=== PATIENT | female | born 1995 | race Caucasian/White ===

== ENCOUNTER 2016-12-10 09:57 | Outpatient (CLI) | payer OTHER | END 2016-12-10 11:15 | disposition home or self-care (01) | DX: O26.893 Other specified pregnancy related conditions, third trimester (principal); R51 Headache; Z3A.34 34 weeks gestation of pregnancy ==

== ENCOUNTER 2016-12-10 11:28 | Emergency (ER) | payer OTHER | END 2016-12-10 13:06 | disposition home or self-care (01) | DX: O99.513 Diseases of the respiratory system complicating pregnancy, third trimester (principal); O98.513 Other viral diseases complicating pregnancy, third trimester; J06.9 Acute upper respiratory infection, unspecified; B97.89 Other viral agents as the cause of diseases classified elsewhere; O99.333 Smoking (tobacco) complicating pregnancy, third trimester; Z3A.34 34 weeks gestation of pregnancy ==

== ENCOUNTER 2016-12-21 23:30 | Outpatient (CLI) | payer OTHER | END 2016-12-22 01:25 | disposition home or self-care (01) | DX: O47.1 False labor at or after 37 completed weeks of gestation (principal); Z3A.36 36 weeks gestation of pregnancy ==

== ENCOUNTER 2016-12-26 16:47 | Outpatient (CLI) | payer OTHER | END 2016-12-26 17:55 | disposition home or self-care (01) | DX: O47.1 False labor at or after 37 completed weeks of gestation (principal); Z3A.37 37 weeks gestation of pregnancy ==

== ENCOUNTER 2017-12-02 08:00 | Outpatient (CLI) | payer MEDICAID, OTHER ==
[2017-12-02 19:36] LABS: BASOPHILS % (AUTO) 0.6 %; EOSINOPHILS # (AUTO) 0.5 10^3/uL (0.0-0.7); EOSINOPHILS % (AUTO) 6.9 %; LYMPHOCYTES # (AUTO) 2.5 10^3/uL (1.5-3.5); LYMPHOCYTES % (AUTO) 32.5 %; MEAN CORPUSCULAR HEMOGLOBIN 24.8 pg (27.0-31.0); MEAN CORPUSCULAR HGB CONC 31.8 g/dL (32.0-36.0); MEAN CORPUSCULAR VOLUME 78.1 fL (81.0-99.0); MEAN PLATELET VOLUME 8.2 fL (7.9-10.8); MONOCYTES # (AUTO) 0.7 10^3/uL (0.0-1.0); NEUTROPHILS # (AUTO) 3.9 10^3/uL (1.5-6.6); PLT - PLATELET COUNT 309 10^3/uL (130-450); RED BLOOD COUNT 5.24 10^6/uL (4.20-5.40); RED CELL DISTRIBUTION WIDTH 14.1 % (12.0-15.0); WHITE BLOOD COUNT 7.6 x10^3/uL (4.8-10.8)
[2017-12-02 19:46] LABS: ALBUMIN 4.5 g/dL (3.2-5.5); ALBUMIN/GLOBULIN RATIO 1.2 (1.0-2.2); ALKALINE PHOSPHATASE 126 IU/L (42-121); ALT ALANINE AMINOTRANSFERASE 33 IU/L (10-60); AST ASPARTATE AMINOTRANSFERASE 36 IU/L (10-42); BILIRUBIN,TOTAL 0.4 mg/dL (0.2-1.0); BUN - BLOOD UREA NITROGEN 8 mg/dL (6-20); CALCIUM 9.1 mg/dL (8.5-10.3); CARBON DIOXIDE - CO2 24 mmol/L (21-32); CHLORIDE 105 mmol/L (101-111); CHOL/HDL RATIO 5.9 (<4.4); CHOLESTEROL 164 mg/dL; CREATININE 0.6 mg/dL (0.4-1.0); GFR - MDRD 123 (>89); GLUCOSE 89 mg/dL (70-100); HDL CHOLESTEROL 28 mg/dL; LDL CHOLESTEROL,CALCULATED 119 mg/dL; LDL/HDL RATIO 4.3 (<4.4); SODIUM 138 mmol/L (135-145); TOTAL PROTEIN 8.3 g/dL (6.7-8.2); VLDL CHOLESTEROL 17 mg/dL
[2017-12-02 20:01] LABS: HB2 TOTAL 14.5 g/dL; HEMOGLOBIN A1C 0.51 g/dL; HEMOGLOBIN A1C % 5.4 % (4.6-6.2)
== END 2017-12-02 08:01 ==
LOC: LAB.N 08:00
PROVIDERS: ATTEND Nurse Practitioner Gerontology
DX: Z13.9 Encounter for screening, unspecified (principal); R73.9 Hyperglycemia, unspecified
CPT/HCPCS: 36415; 80050; 80061; 83036; 83721

== ENCOUNTER 2018-04-21 19:59 | Outpatient (CLI) | payer MEDICAID ==
--- NOTE | 2018-04-22 09:50 | Ultrasound Report ---
Procedure Date: 04/21/2018 Accession Number: [id number] / [id number] Procedure: US - OB First Trimester CPT Code: FULL RESULT: EXAM: FIRST TRIMESTER OBSTETRIC ULTRASOUND (Less than 11 weeks) EXAM DATE: 04/21/2018 09:33 PM. CLINICAL HISTORY: ENCOUNTER FOR TEST, RESULT POSITIVE. LMP: 02/09/2018. COMPARISONS: None. TECHNIQUE: Transabdominal and transvaginal ultrasound examination with static image documentation. CLINICAL DATES: EGA 10 weeks, 1 day with LAZARUS 11/16/2018 based on LMP. ASSESSMENT: Gestational Sac: Single intrauterine. Mean gestational sac diameter: 24.7 mm = 7 weeks, 1 day. Embryo: CRL (crown-rump length) 12.7 mm = 7 weeks, 3 days. Cardiac activity: 159 beats per minute. Yolk sac: 3.5 mm. Amniotic fluid: Not accurately assessed at this gestational age. Early placenta: Not visible at this gestational age. Other: No perigestational fluid collection demonstrated. MATERNAL STRUCTURES: Uterus: Anteverted. Unremarkable. Cervix: Closed. Right Ovary/Adnexa: Within the right ovary is a cystic lesion measuring approximately 1.7 x 1.2 x 1.3 cm which may represent a corpus luteal cyst. The ovary measures 3.2 x 2.9 x 2.7 cm, volume 13 cc. Left Ovary/Adnexa: Unremarkable. The ovary measures 3.0 x 1.3 x 1.2 cm, volume 2.4 cc. Free Fluid: None. Other: None. IMPRESSION: 1. Single viable intrauterine at EGA 7 weeks, 3 days with LAZARUS 12/05/2018 based on crown-rump length, which is discrepant with gestational age of 10 weeks, 1 day based on stated dating. 2. Assigned dating is LAZARUS 11/16/2018 based on LMP. RADIA
== END 2018-04-21 20:00 | disposition home or self-care (01) ==
LOC: DI 19:59
PROVIDERS: ATTEND Nurse Practitioner Obstetrics & Gynecology
DX: Z32.01 Encounter for pregnancy test, result positive (principal)
CPT/HCPCS: 76801; 76817

== ENCOUNTER 2018-05-09 15:15 | Outpatient (CLI) | payer MEDICAID ==
[2018-05-09 17:57] LABS: MUDS CUTOFF CONCENTRATIONS CUTOFF CONC BELOW:
[2018-05-09 18:48] LABS: AMPHETAMINE SCREEN,URINE NEGATIVE (NEGATIVE); BENZODIAZEPINES SCREEN, URINE NEGATIVE (NEGATIVE); COCAINE SCREEN URINE NEGATIVE (NEGATIVE); METHADONE SCREEN, URINE NEGATIVE (NEGATIVE); METHAMPHETAMINES SCREEN, URINE NEGATIVE (NEGATIVE); OPIATE SCREEN, URINE NEGATIVE (NEGATIVE); OXYCODONE SCREEN, URINE NEGATIVE (NEGATIVE); PROPOXYPHENE SCREEN, URINE NEGATIVE (NEGATIVE); TRICYCLIC ANTIDEPRESSANT,URINE NEGATIVE (NEGATIVE)
== END 2018-05-09 15:16 | disposition home or self-care (01) ==
LOC: LAB.R 15:15
PROVIDERS: ATTEND Nurse Practitioner Obstetrics & Gynecology
DX: Z36.9 Encounter for antenatal screening, unspecified (principal)
CPT/HCPCS: 80306

== ENCOUNTER 2018-05-20 11:17 | Outpatient (CLI) | payer MEDICAID ==
[2018-05-20 12:16] LABS: GLUCOSE, URINE (UA) NEGATIVE (NEGATIVE); KETONES,URINE (UA) 15 mg/dL (NEGATIVE); LEUKOCYTE ESTERASE, URINE NEGATIVE (NEGATIVE); NITRITE,URINE NEGATIVE (NEGATIVE); OCCULT BLOOD,URINE NEGATIVE (NEGATIVE); PH,URINE 7.5 PH (5.0-7.5); PROTEIN,URINE TRACE mg/dL (NEGATIVE); UROBILINOGEN,URINE 1 (NORMAL) E.U./dL (NORMAL)
[2018-05-20 12:17] LABS: BASOPHILS # (AUTO) 0.1 10^3/uL (0.0-0.1); EOSINOPHILS # (AUTO) 0.3 10^3/uL (0.0-0.7); EOSINOPHILS % (AUTO) 2.5 %; HGB - HEMOGLOBIN 12.5 g/dL (12.0-16.0); LYMPHOCYTES # (AUTO) 2.9 10^3/uL (1.5-3.5); LYMPHOCYTES % (AUTO) 27.4 %; MEAN CORPUSCULAR HEMOGLOBIN 25.9 pg (27.0-31.0); MEAN CORPUSCULAR VOLUME 78.7 fL (81.0-99.0); MEAN PLATELET VOLUME 7.7 fL (7.9-10.8); MONOCYTES # (AUTO) 0.6 10^3/uL (0.0-1.0); MONOCYTES % (AUTO) 5.9 %; NEUTROPHILS # (AUTO) 6.6 10^3/uL (1.5-6.6); NEUTROPHILS % (AUTO) 63.2 %; PLT - PLATELET COUNT 254 10^3/uL (130-450); RED BLOOD COUNT 4.81 10^6/uL (4.20-5.40); WHITE BLOOD COUNT 10.4 x10^3/uL (4.8-10.8)
[2018-05-20 13:08] LABS: CLARITY,URINE CLEAR (CLEAR)
[2018-05-20 13:14] LABS: BILIRUBIN,URINE NEGATIVE (NEGATIVE); ICTOTEST,URINE NEGATIVE
[2018-05-20 13:16] LABS: BACTERIA,URINE Few /HPF (None Seen); MUCUS,URINE Few Strands; RBC,URINE 0-5 /HPF (0-5); SQUAMOUS EPITHELIAL CELL,UR MANY Squamous (<= Few)
[2018-05-21 09:31] LABS: HEPATITIS B SURFACE ANTIGEN NON-REACTIVE (NON-REACTIVE)
[2018-05-21 13:51] LABS: HEPATITIS C ANTIBODY NON-REACTIVE (NON-REACTIVE)
[2018-05-21 15:31] LABS: HIV AG/AB 4TH GEN NON-REACTIVE (NON-REACTIVE)
== END 2018-05-20 11:18 | disposition home or self-care (01) ==
LOC: LAB 11:17
PROVIDERS: ATTEND Nurse Practitioner Obstetrics & Gynecology
DX: Z36.9 Encounter for antenatal screening, unspecified (principal)
CPT/HCPCS: 36415; 81001; 81599; 85025; 86592; 86762; 86803; 86850; 86900; 86901; 87340; 87389

== ENCOUNTER 2018-06-12 09:31 | Outpatient (CLI) | payer MEDICAID ==
[2018-06-12 13:34] LABS: HB2 TOTAL 13.3 g/dL; HEMOGLOBIN A1C 0.43 g/dL; HEMOGLOBIN A1C % 5.1 % (4.6-6.2)
== END 2018-06-12 09:32 ==
LOC: LAB.N 09:31
PROVIDERS: ATTEND Registered Nurse
DX: Z86.32 Personal history of gestational diabetes (principal)
CPT/HCPCS: 36415; 82950; 83036

== ENCOUNTER 2018-06-30 12:06 | Outpatient (CLI) | payer MEDICAID ==
--- NOTE | 2018-06-30 16:02 | Ultrasound Report ---
Reason: ENCOUNTER FOR SCREENING, UNSPECIFIED Procedure Date: 06/30/2018 Accession Number: [id number] / [id number] Procedure: US - OB Detailed Eval CPT Code: FULL RESULT: EXAM: COMPLETE OBSTETRICAL ULTRASOUND EXAM DATE: 06/30/2018 03:18 PM. CLINICAL HISTORY: anatomic survey. COMPARISON: 04/21/2018 TECHNIQUE: Real-time sonographic evaluation of the fetus performed by the railroad car truck builder. Multiple media sales representative static images were saved for review. DATING: LAZARUS 12/05/2018 based on prior ultrasound of 04/21/2018. EGA 18 weeks 2 days with LAZARUS 11/29/2018 based on the current ultrasound. GENERAL EVALUATION Evans . Cardiac activity: 135 bpm. movement: Present Presentation: Variable Placenta: Anterior position. No evidence for previa. Umbilical cord: 3 vessel cord. Central placental cord origin. Amniotic fluid: Subjectively normal. MVP 4.6 cm. BIOMETRY Bi-Parietal Diameter (BPD): 3.9 cm, 17 weeks 6 days Head Circumference (HC): 14.8 cm, 17 weeks 6 days Abdominal Circumference (AC): 13.5 cm, 19 weeks 0 days Femur Length (FL): 2.8 cm, 18 weeks 4 days Estimated Weight: 251 gm. ANATOMY The intracranial structures, profile, face/nose/lips, spine, 4 chamber heart and outflow tracts, stomach, abdominal wall and cord insertion, diaphragm, kidneys, bladder, and extremities were seen and demonstrate no abnormality. MATERNAL STRUCTURES Uterus: Unremarkable. Cervix: Long and closed. Transabdominal length 4.4 cm. Right ovary/adnexa: Unremarkable. Left ovary/adnexa: Unremarkable. Free fluid: None. IMPRESSION: 1. Evans intrauterine with gestational age 18 weeks 2 days based on the current ultrasound. 2. No anatomic abnormalities are detected at this time. RADIA
== END 2018-06-30 12:07 | disposition home or self-care (01) ==
LOC: DI 12:06
PROVIDERS: ATTEND Nurse Practitioner Obstetrics & Gynecology
DX: Z36.9 Encounter for antenatal screening, unspecified (principal); Z3A.18 18 weeks gestation of pregnancy
CPT/HCPCS: 76811

== ENCOUNTER 2018-08-25 14:26 | Outpatient (CLI) | payer MEDICAID ==
[2018-08-25 19:22] LABS: HGB - HEMOGLOBIN 11.8 g/dL (12.0-16.0); MEAN CORPUSCULAR HEMOGLOBIN 26.7 pg (27.0-31.0); MEAN CORPUSCULAR HGB CONC 32.2 g/dL (32.0-36.0); MEAN CORPUSCULAR VOLUME 82.8 fL (81.0-99.0); MEAN PLATELET VOLUME 8.3 fL (7.9-10.8); RED BLOOD COUNT 4.43 10^6/uL (4.20-5.40); RED CELL DISTRIBUTION WIDTH 14.3 % (12.0-15.0); WHITE BLOOD COUNT 11.2 x10^3/uL (4.8-10.8)
== END 2018-08-25 23:59 | disposition home or self-care (01) ==
LOC: LAB.N 14:26
PROVIDERS: ATTEND Registered Nurse
DX: Z33.1 Pregnant state, incidental (principal)
CPT/HCPCS: 36415; 82950; 85025; 85027; 86850

== ENCOUNTER 2018-10-24 15:06 | Outpatient (CLI) | payer MEDICAID | END 2018-10-24 23:59 | disposition home or self-care (01) | LOC: LAB.R 15:06 | PROVIDERS: ATTEND Registered Nurse | DX: Z33.1 Pregnant state, incidental (principal) | CPT/HCPCS: 87491; 87591; 87797 ==

== ENCOUNTER 2018-11-05 16:05 | Outpatient (CLI) | payer MEDICAID ==
[2018-11-05 16:18] VITALS: BP 120/68
--- NOTE | 2018-11-10 17:51 | PROVIDER PROGRESS NOTE ---
Subjective - Subjective Subjective: 11/05/2018 NST Yanci present to [facility] with complaints of persistent uterine contractions. She reports +FM. She denies VB, Lof, or contractions. SVE 2-3 cm dilated and 50% effacement. NST reactive Category I with + accels and no decels. Repeat SVE unchanged. Pt released home with precautions and intends to f/u early next week for routine OB visit. Dx: False labor >37wks gestation Uterine contractions >37wks gestation
== END 2018-11-05 17:58 | disposition home or self-care (01) ==
LOC: WFO 16:05 → FBP 16:09 → WFO 17:58
PROVIDERS: ATTEND Obstetrics & Gynecology
DX: O47.1 False labor at or after 37 completed weeks of gestation (principal); Z3A.38 38 weeks gestation of pregnancy
CPT/HCPCS: 99213

== ENCOUNTER 2018-11-15 22:23 | Inpatient (IN) | payer MEDICAID ==
[2018-11-15] MEDS ORDERED: SODIUM CHLORIDE FLUSH 0.9% 10 ML SYRINGE IVP PRN (23:21)
[2018-11-15] MEDS ORDERED: ONDANSETRON 4 MG/2 ML VIAL IVP PRN (23:21)
[2018-11-15] MEDS ORDERED: fentaNYL 100 MCG/2 ML VIAL IVP PRN (23:21)
[2018-11-15] MEDS ORDERED: SODIUM CHLORIDE FLUSH 0.9% 10 ML SYRINGE ONE (23:30)
--- NOTE | 2018-11-16 00:41 | HISTORY & PHYSICAL EXAMINATION ---
Admit History - Visit Reason Visit Reason: Contractions - : 2 Parity: 1 Premature: 0 Ectopic: 0 : 0 Care: positive: [facility] Risk/History: positive: None Complications This : positive: None Smoking Status: Current every day smoker - Mother's Labs Mother's Blood Type: positive: O Mother's RH: positive: Negative GBS: positive: Group B Step Negative Rubella Status: positive: Non-immune Meds/Allgy - Home Medications Home Medications: Ambulatory Orders Medication Instructions Recorded Confirmed Guaifenesin [Mucinex] 600 mg PO BID PRN #14 tablet.er 12/10/16 Ondansetron HCl [Zofran] 4 mg PO Q6H PRN #10 tablet 12/10/16 guaiFENesin/CODEINE [Robitussin AC] 5 - 10 ml PO Q6H PRN #120 ml 12/10/16 - Allergies Allergies/Adverse Reactions: Allergies Allergy/AdvReac Type Severity Reaction Status Date / Time No Known Drug Allergies Allergy Verified 11/02/15 11:15 Review of Systems - Constitutional Constitutional: denies: Fatigue, Fever, Chills, Malaise - Eyes Eyes: denies: Blurred vision, Spots in vision, Dipolpia - Cardiovascular Cariovascular: denies: Palpitations, Chest pain, Edema - Respiratory Respiratory: denies: Cough, Sputum production, Wheezing - Gastrointestinal Gastrointestinal: denies: Abdominal pain, Constipation, Diarrhea, Nausea, Vomiting - Genitourinary Genitourinary: denies: Dysuria, Hematuria - Integumentary Integumentary: denies: Rash, Pruritis - Neurological Neurological: denies: Headache - Psychiatric Psychiatric: denies: Depression, Anxiety Physical - Abdominal Exam Vital Signs: Temp Pulse Resp BP Pulse Ox 36.6 C 85 16 123/66 99 11/15/18 22:32 11/15/18 22:32 11/15/18 22:32 11/15/18 22:32 11/15/18 22:32 Contraction Frequency (min/apart): 3 Contraction Intensity: positive: Moderate to strong Uterine Resting Tone: positive: Soft - Monitoring Heart Rate Baseline: 130 Strip Review: positive: Category I - Presentation Presentation: positive: Vertex - Vaginal Exam Membranes: positive: Membranes intact Dilation (in cm): 5 Effacement (%): 80 Station: positive: 0 Cervical Position: positive: Midposition - Speculum Exam Speculum Exam Performed: positive: No Plan for Labor - Plan For Labor I expect patient to be DC'd or transferred within 96 hours.: Yes Plan for Labor: HPI: Yanci is a 23yo @ 40.0wks gestation by LMP presented to [facility] at 2229 on 11/15/2018 with complaints of contractions. She denies VB or Lof. Reports +FM. Denies MATSON, visual disturbances or edema. She is coping well contractions and desires an unmedicated delivery. This has been complicated by persistent tobacco use despite cessation counseling. Her first was complicated by A1GDM - early GTT WNL, 28wk GTT WNL. Her labs reviewed that she is non-immune to rubella and she will receive MMR vaccination prior to discharge . Dating Criteria: LMP 11/16/2017 PMHx: Surgical Hx: Lumpectomy 2014 G1: 01/04/2017 of viable male at 38wks gestation 25 hr labor, epidural, 8lbs 8oz, delivery @ [facility]. Complications: A1 gestational diabetes G2: current Medications: PNV Allergies: NKDA Immunizations: Influenza 06/06/2018 Tdap Rhogam labs: O negative Antibody negative Hgb 11.8; Hct 36.7; PLT 269 Hgb A1C 5.1 TSH 1.01 Hep B neg Hep C neg HIV non-reactive RPR neg *Rubella non-immune UTOX neg Pap normal GC/CT neg early 1 hr GTT 121 28wk 1 hour GTT 120 Ultrasounds: 04/21/2018 initial @ 7w3d 06/30/2018 FAS WNL; Anterior placenta, no previa, OLIVIA WNL. 3VC Physical Exam: Atraumatic, normocephalic Mood is good - eager to meet baby Heart RRR w/o M/G/R Lungs CTAB Abdomen gravid, soft and nontender Contractions palpate moderate-strong every 3 minutes with soft resting tone FHR baseline 130s, moderate variability with intermittent periods of minimal variability, + accels no decels SVE 5/80/0, vertex, BOW intact Bilateral LE's no edema Assessment: 23yo @ 40.0wks gestation by LMP GBS neg Active labor FHR Category I Plan: Admit for expectant management Continuous monitoring Encouraged ambulation and frequent position changes Jacuzzi PRN N2O PRN Epidural per maternal request Anticipate spontaneous vaginal delivery.
[2018-11-16 00:57] LABS: BASOPHILS # (AUTO) 0.1 10^3/uL (0.0-0.1); BASOPHILS % (AUTO) 0.4 %; EOSINOPHILS # (AUTO) 0.3 10^3/uL (0.0-0.7); HGB - HEMOGLOBIN 11.5 g/dL (12.0-16.0); LYMPHOCYTES % (AUTO) 21.4 %; MEAN CORPUSCULAR HGB CONC 32.8 g/dL (32.0-36.0); MEAN CORPUSCULAR VOLUME 79.2 fL (81.0-99.0); MEAN PLATELET VOLUME 8.4 fL (7.9-10.8); MONOCYTES # (AUTO) 0.8 10^3/uL (0.0-1.0); MONOCYTES % (AUTO) 5.4 %; NEUTROPHILS % (AUTO) 70.8 %; PLT - PLATELET COUNT 253 10^3/uL (130-450); RED BLOOD COUNT 4.44 10^6/uL (4.20-5.40); RED CELL DISTRIBUTION WIDTH 13.6 % (12.0-15.0); WHITE BLOOD COUNT 14.2 x10^3/uL (4.8-10.8)
[2018-11-16] MEDS ORDERED: SODIUM CHLORIDE FLUSH 0.9% 10 ML SYRINGE IVP SCH (01:00)
--- NOTE | 2018-11-16 01:36 | PROVIDER PROGRESS NOTE ---
Labor Progress Note - Uterine Monitoring Uterine Monitoring Mode: positive: External toco Contraction Frequency (min/apart): 3-5 Contraction Intensity: positive: Moderate to strong Uterine Resting Tone: positive: Soft - Monitoring Monitor Mode: positive: External ultrasound Heart Rate Baseline: 130 Heart Rate Variability: positive: Moderate (6-25 bmp) Accelerations: positive: Present, 15x15 Decelerations: positive: None Strip Review: positive: Category I - Vaginal Exam Dilation (in cm): 5 Effacement (%): 80 Station: 0 Cervical Position: Midposition - Labor Progress Note Labor Progress Note/Additional Text: S: Laying bed breathing through contractions but feels they have not increased in intensity since she arrived. , a friends supportive at the bedside. O: BP 123/66, Hr 85, RR 16, T 36.6 AROM moderate amount of clear fluid @ 0129 FHR baseline 130s, moderate variability, + accels, no decels. Contractions palpate moderate-strong every 3-5 minutes with soft resting tone. A: 23yo @ 40.0wks gestation Active labor Augmented with AROM GBS neg P: Continuous monitoring Expectant management Encouraged ambulation and position changes Epidural per maternal request Anticipate spontaneous vaginal delivery
[2018-11-16] MEDS ORDERED: LACTATED RINGERS 1,000 ML IV ONE (05:54)
[2018-11-16] MEDS: LACTATED RINGERS 1,000 ML IV ONE ×2 (05:55→07:17)
[2018-11-16] MEDS ORDERED: fent/BUPIV 2 MCG/0.125% 250 ML EP ONE (05:56)
[2018-11-16] MEDS ORDERED: OXYTOCIN/SODIUM CHLORIDE 500 ML IV ONE (06:28)
--- NOTE | 2018-11-16 06:59 | PROVIDER PROGRESS NOTE ---
Labor Progress Note - Uterine Monitoring Uterine Monitoring Mode: positive: External toco Contraction Frequency (min/apart): 3-5 Contraction Intensity: positive: Strong Uterine Resting Tone: positive: Soft - Monitoring Monitor Mode: positive: External ultrasound Heart Rate Baseline: 125 Heart Rate Variability: positive: Moderate (6-25 bmp) Accelerations: positive: Present, 15x15 Decelerations: positive: None Strip Review: positive: Category I - Vaginal Exam Dilation (in cm): 7-8 Effacement (%): 100 Station: 1 Cervical Position: Anterior - Labor Progress Note Labor Progress Note/Additional Text: S: Left side-lying and now comfortable with epidural. Coping well with previous contractions but did desires placement of epidural. Quick placement and pt feels immediate relief. and friends supportive at the bedside. O: BP 107/50, HR 67, O2 100 T 36.6 FHR baseline 125, moderate variability, + accels, no decels Contractions palpate firm every 3-5 minutes with soft resting tone. A: 23yo @ 40.0wks gestation by LMP Active labor AROM x 4 hours FHR Category I P: Continuous monitoring Epidural placed for pain management. Continue expectant management. Anticipate spontaneous vaginal delivery
[2018-11-16] MEDS ORDERED: ONDANSETRON 4 MG/2 ML VIAL IVP PRN (07:11)
[2018-11-16] MEDS ORDERED: fent/BUPIV 2 MCG/0.125% 250 ML EP PRN (07:11)
[2018-11-16] MEDS ORDERED: METOCLOPRAMIDE 10 MG/2 ML VIAL IVP PRN (07:11)
[2018-11-16] MEDS ORDERED: LACTATED RINGERS 500 ML IV ONE (07:11)
[2018-11-16] MEDS ORDERED: NALBUPHINE 10 MG/ML AMP IVP PRN (07:11)
[2018-11-16] MEDS ORDERED: ePHEDrine 50 MG/ML VIAL IVP PRN (07:11)
[2018-11-16] MEDS ORDERED: NALOXONE 0.4 MG/ML VIAL IVP PRN (07:11)
[2018-11-16] MEDS ORDERED: diphenhydrAMINE INJ 50 MG/ML VIAL IVP PRN (07:11)
--- NOTE | 2018-11-16 07:15 | ANESTHESIA ---
Pre-Anesthesia VS, & Labs - Diagnosis desires labor epidural - Procedure labor epidural Vital Signs: Temp Pulse Resp BP Pulse Ox 36.6 C 85 16 123/66 99 11/15/18 22:32 11/15/18 22:32 11/15/18 22:32 11/15/18 22:32 11/15/18 22:32 Height 5 ft 3 in Weight (kg) 92.079 kg Body Mass Index 31.8 - NPO Other (clears from now until delivery) - Is Patient ?: Yes - Lab Results Current Lab Results: Laboratory Tests 11/16/18 00:20: WBC 14.2 H, RBC 4.44, Hgb 11.5 L, Hct 35.2 L, MCV 79.2 L, MCH 26.0 L, MCHC 32.8, RDW 13.6, Plt Count 253, MPV 8.4, Neut # (Auto) 10.0 H, Lymph # (Auto) 3.0, [place] # (Auto) 0.8, Eos # (Auto) 0.3, Baso # (Auto) 0.1, Absolute Nucleated RBC 0.01, Nucleated RBC % 0.0 Fish Bones: 11/16/18 00:20 Home Medications and Allergies Active Medications Diphenhydramine HCl (Benadryl Inj) 12.5 - 25 mg IVP Q6HR PRN PRN Reason: ITCHING Ephedrine Sulfate () 5 mg IVP Q5M PRN PRN Reason: For SBP<100;give until SBP>100 Fentanyl (Fentanyl) 50 mcg IVP Q1H PRN PRN Reason: PAIN Fentanyl/Bupivacaine/Sodium Chlor (Fent/Bupiv 2 Mcg/0.125%) 250 mls @ 0 mls/hr EP .Q0M PRN; Protocol PRN Reason: PAIN Lactated Ringer's (Lr) 500 mls @ 999 mls/hr IV ONCE ONE Stop: 11/16/18 07:41 Metoclopramide HCl (Reglan Inj) 10 mg IVP Q6HR PRN PRN Reason: Nausea / Vomiting Nalbuphine HCl (Nubain) 2.5 - 5 mg IVP Q4H PRN PRN Reason: ITCHING Naloxone HCl (Narcan) 0.1 mg IVP Q2M PRN PRN Reason: RR<8 Ondansetron HCl (Zofran Inj) 4 mg IVP Q4H PRN PRN Reason: Nausea / Vomiting Ondansetron HCl (Zofran Inj) 4 mg IVP Q6HR PRN PRN Reason: Nausea / Vomiting Sodium Chloride (Normal Saline Flush 0.9%) 10 ml IVP PRN PRN PRN Reason: NEEDED PER PROVIDER ORDERS Sodium Chloride (Normal Saline Flush 0.9%) 10 ml IVP 0100,0900,1700 RORY Last Admin: 11/16/18 00:49 Dose: 10 ml Allergies/Adverse Reactions: Allergies Allergy/AdvReac Type Severity Reaction Status Date / Time No Known Drug Allergies Allergy Verified 11/02/15 11:15 Anes History & Medical History - Anesthetic History Anesthesia Complications: reports: No previous complications - Medical History Cardiovascular: reports: None Pulmonary: reports: None Gastrointestinal: reports: GERD Smoking Status: Current every day smoker - Obstetrical History : 2 Parity: 1 Events: positive: None Complications: positive: None Exam General: Alert Dental: WNL Mouth Opening: Greater than 4 Fingerbreadths Mallampati classification: II Thyromental Distance: greater than 6 cm Respiratory: Lungs clear Cardiovascular: Regular rate Plan Anesthesia Type: Epidural Consent for Procedure(s) Verified and Reviewed: Yes Code Status: Attempt Resuscitation ASA classification: 2-Mild systemic disease Is this case an emergency?: No
[2018-11-16] MEDS ORDERED: CITRIC ACID/SODIUM CITRATE 15 ML UDC PO ONE ×2 (07:37→07:39)
[2018-11-16] MEDS ORDERED: ceFAZolin 2 GM/50 ML 2 GM/50 ML BAG IV SCH (07:45)
[2018-11-16] MEDS ORDERED: HYDROCORTISONE 1% CREAM 28 GM TUBE PR PRN (08:22)
[2018-11-16] MEDS ORDERED: WITCH HAZEL/GLYCERIN 1 EACH MED..PAD TOP PRN (08:22)
--- NOTE | 2018-11-16 08:22 | DELIVERY NOTE ---
Delivery Note - Labor Labor: positive: Spontaneous, Augmented by ARM - Infant Delivery Method Delivery Method: positive: Spontaneous vaginal delivery - Presentation Presentation: positive: Vertex, LOREN - right occiput anterior - Nuchal Cord Nuchal Cord: positive: Present, Reduced - Amniotic Fluid Description Amniotic Fluid Description: positive: Clear - Laceration Laceration: positive: None - Delivery Outcome Delivery Outcome: positive: Livebirth - [place]: positive: Placed in direct skin contact with mother, Bulb syringe, Stimulated, Warmed, [place] used [place] sex: positive: Female - Cord Cord: positive: 3 vessels - Placenta Placenta: positive: Intact, Spontaneous - Estimated Blood Loss Estimated Blood Loss (in cc): 300 - Post Delivery Events Post Delivery Events: positive: No post delivery events - Delivery Comments (Free Text/Narrative) Delivery Comments (Free Text/Narrative): This 23yo @ 40.0wks gestation by LMP presented at 2229 on 11/15/2018 with c/o contractions. Cervix was 5/80/0, vertex. FHR pattern demonstrated Category I baseline throughout labor. AROM occurred at 0129 and was noted to be a moderate amount of clear fluid. Normal labor course. Epidural placed per maternal request. At approximately 0711 there was a sudden inability to trace heart tones via external monitor. Maternal O2 initiated and IV fluid bolus initiated. Patient was rotate to her left and then to her right. SVE c/c/+1 @ 0715. An FSE was placed with persistent inability to achieve consistently audible/traceable heart tones. Dr. Serrano called to the bedside, forest technician notified to be present for delivery, and OR team mobilized. FSE replaced to ensure difficult tracing was not equipment malfunction which resulted in a more adequate tracing at approximately 0720. Patient rotated in bed again and attempted to reach a hands and knees position towards maternal right side and when an right exaggerated side-lying position was reached, the heart rate recovered with an acceleration to 150bpm and return to baseline of 120bpm. Good maternal pushing effort resulted in spontaneous vaginal delivery of viable female infant on 11/16/2018 at 0741 in LOREN position. Tight nuchal cord x 1 reduced. Pitocin administered via IV for hemostasis. Apgars were 8/9 at [address] Serrano present at the bedside for delivery. The was placed on maternal abdomen, stimulated, dried, and placed skin to skin. The umbilical cord was doubly clamped by CNM and cut by FOB. Cord blood was obtained. Placenta delivered spontaneously and intact 0745. 3VC. EBL 300mL. Uterine fundus firm and there is no excessive bleeding. The perineum, vagina, and cervix were inspected and found to be intact. initiated. Family bonding well. Both mother and baby were left in stable condition.
[2018-11-16] MEDS: DOCUSATE SODIUM 100 MG CAPSULE PO SCH ×2 (09:12→21:19)
[2018-11-16] MEDS: IBUPROFEN 800 MG TABLET PO SCH ×2 (09:12→17:04)
[2018-11-16] MEDS: ACETAMINOPHEN 500 MG TABLET PO SCH (09:12)
[2018-11-16] MEDS ORDERED: OXYTOCIN/SODIUM CHLORIDE 500 ML IV PRN (10:26)
[2018-11-17] MEDS: ACETAMINOPHEN 500 MG TABLET PO SCH ×2 (00:01→08:17)
[2018-11-17] MEDS: IBUPROFEN 800 MG TABLET PO SCH ×2 (00:01→06:29)
[2018-11-17] MEDS: DOCUSATE SODIUM 100 MG CAPSULE PO SCH (08:17)
[2018-11-17 08:28] VITALS: BP 113/63
--- NOTE | 2018-11-17 08:40 | Discharge Plan ---
Discharge Plan Disposition: 01 Home, Self Care Condition: Good Diet: Regular Activity Restrictions: pelvic rest x6 weeks Shower Restrictions: No (NO TUB BATHING) Driving Restrictions: No Weight Bearing: Full Weight Instruction Topics: Vaginal After, Breastfeed How To, Exercises Kegel Additional Instructions or Follow Up instructions: x1 week in outpt clinic No Smoking: If you smoke, Please STOP! Call for help. Follow-up with: Mary Rodriguez ARNP [Primary Care Provider] - Sintia Franco CNM, ARNP [Provider Admit Priv/Credential] -
--- NOTE | 2018-11-17 08:42 | DISCHARGE SUMMARY ---
"Discharge Summary Admit Date: 11/15/18 Discharge Date: 11/17/18 Discharging Provider: [facility] Primary Care Provider: ROZINA Code Status: Attempt Resuscitation Condition at Discharge: Good Discharge Disposition: 01 Home, Self Care Discharge Facility Name: [facility] - DIAGNOSES Admission Diagnoses: SPONTANEOUS LABOR AT TERM Discharge Diagnoses with Status of Each Condition: - HPI History of Present Illness: Yanci was admitted at 40w0d in spontaneous, active labor at term. She progressed w/ some erratic decelerations w/ FSE placement and spontaneous resolution s/p epidural placement. She pushed w/ direction to of viable female in LOREN position over an intact perineum w/o complication. - CONSULTS | PROCEDURES Consultations: anesthesia, obstetrics Procedures: Epidural placement fse placement - HOSPITAL COURSE Hospital Course: , Yanci is doing well. She is ambulating & voiding w/o difficulty or discomfort. She denies incontinence. She is passing flatus & tolerating a regular diet. She reports minimal lochia rubra. She denies any discomfort & is not requiring analgesia of any kind. She is well w/ some tenderness w/ latch. She reports a previously successful expe rience x2 years. She reports a hx of pp depression but denies assistance w/ prevention @ this time. She feels she has better social support & will readily recognize the symptoms. She is not planning to return to work. She is able to fully articulate pp warning s/sx, including pp depression s/sx, and pp aftercare instructions. Her is involved & supportive. She is ready to leave the hospital. - ALLERGIES Allergies/Adverse Reactions: Allergies Allergy/AdvReac Type Severity Reaction Status Date / Time No Known Drug Allergies Allergy Verified 11/02/15 11:15 - MEDICATIONS Home Medications: Ambulatory Orders Medication Instructions Recorded Confirmed Ibuprofen [Motrin] 800 mg PO Q6H tablet 11/17/18 - PHYSICAL EXAM AT DISCHARGE General Appearance: positive: No acute distress, Alert Eyes Bilateral: positive: Normal inspection, EOMI Respiratory: positive: Chest non-tender, No respiratory distress, Breath sounds nml Cardiovascular: positive: Regular rate & rhythm, No murmur, No gallop Abdomen: positive: Non-tender, No distention, Other (FF U-1) Back: positive: Nml inspection Skin: positive: Color nml, No rash, Warm, Dry Extremities: positive: Non-tender, Full ROM, Nml appearance, No pedal edema. negative: Calf tenderness, Aaron's sign/cords Neurologic/Psychiatric: positive: Oriented x3, CN's nml (2-12), Motor nml, Sensation nml, Mood/affect nml - LABS Result Diagrams: 11/16/18 00:20 - FOLLOW UP Follow Up: x1 week in outpt clinic, x3 weeks in outpt clinic, 8 weeks in outpt clinic; all with Sintia Franco CNM; earlier PRN - TIME SPENT Time Spent in Discharge (Minutes): 20"
--- NOTE | 2018-11-17 11:53 | Labor Flowsheet ---
Labor Flowsheet Datetime Report Generated by CPN: 11/17/2018 11:53 Datetime: 11/17/2018 07:58 VITAL SIGNS NBP Sys/Cristina/Mean (mmHg): 113 : 63 : 73 Pulse: 62 LaborFlag: Labor Datetime: 11/16/2018 08:04 SpO2 (%): 99 Datetime: 11/16/2018 07:42 MEDICATIONS Medication Comments: pp pit infusing Datetime: 11/16/2018 07:37 Provider Notified (Name): Maggie Datetime: 11/16/2018 07:36 UTERINE ACTIVITY Monitor Mode: Palpation Contraction Comments: q-2-3 min on palpation. pushing with each one ASSESSMENT A Monitor Mode: Internal Scalp Electrode FHR Baseline Rate : 120 Variability: Moderate 6-25 bpm Accelerations: None Decelerations: None Category: Category I Oxygen Method: Room Air I/O Interventions: Richter Cath Inserted Patient Care Comments: by dr mahmood Datetime: 11/16/2018 07:33 COMMUNICATION Communication: Provider at Bedside Communication Comments: Dr mahmood here Datetime: 11/16/2018 07:28 Comments: pt tried to get to hands and knees. while trying FSE started to milk pickup driver FHR. Datetime: 11/16/2018 07:26 Patient Position/Activity: Right Lateral Datetime: 11/16/2018 07:20 Monitor Interventions for FHR: FSE Applied Actions for Decelerations: Trendelenberg; Oxygen Applied; IV Bolus Datetime: 11/16/2018 07:15 Frequency (min): 1.5-4.5 Quality: Strong Duration (sec): 50-120 Pattern: Normal: <= 5 Contractions in 10 Minutes Resting Tone (Palpate): Relaxed VAGINAL EXAM Dilatation (cm): 10.0 Effacement (%): 100 Station: 1 Exam by: daiana ruiz cnm Vaginal Bleeding: None Cervix, Consistency: Soft Vaginal Exam Comments: anterior lip, pt pushed right away and continue to push PATIENT CARE Oxygen Amount (LPM): 10 Datetime: 11/16/2018 06:56 PAIN Pain Scale: 4 Pain Presence: Intermittent Pain Type: Contraction Pain Location: Abdomen; Back Datetime: 11/16/2018 06:54 Epidural Procedure Other: Pump Started Datetime: 11/16/2018 06:44 Pain Relief Measures: Epidural Given Pain Coping: Breathing Through Contractions Datetime: 11/16/2018 06:42 Cervix, Position: Anterior Datetime: 11/16/2018 06:33 Epidural Procedure: Test Dose Datetime: 11/16/2018 06:28 Epidural Positioning: Sitting Datetime: 11/16/2018 06:20 PROCEDURE TIME OUT Procedure Verify: Accurate Procedure Consent Form ANESTHESIA Anesthesia Plans: Epidural Anesthesia Comments: [employer]UTIONS CONSULTANT here for epidural Datetime: 11/16/2018 06:06 Respirations: 16 Datetime: 11/16/2018 06:04 Temperature (C): 36.6 Datetime: 11/16/2018 05:59 Notification Reason: Status Update; Status; Labor Status Datetime: 11/16/2018 04:38 Pain Assessment Comments: now using nitrous oxide for pain management. Feeling pressure with contra ctions now Datetime: 11/16/2018 01:28 Membrane Status: Ruptured Membranes Rupture Method: Artificial Amniotic Fluid Color: Clear Amniotic Fluid Amount: Moderate Amniotic Fluid Odor: Normal Datetime: 11/16/2018 00:52 MATERNAL ASSESSMENT Level of Consciousness: Fully Conscious Headache: Denies Breath Sounds, Left: Clear and Equal Breath Sounds, Right: Clear and Equal Nausea/Vomiting: Denies RUQ Epigastric Pain: Denies
== END 2018-11-17 11:52 | disposition home or self-care (01) | DRG 807 ==
LOC: WFO 22:23 → FBP 22:25 → WFO 22:28 → FBP 22:42
PROVIDERS: ADMIT Nurse Practitioner Obstetrics & Gynecology; ATTEND Registered Nurse
PROC: 10E0XZZ Delivery of Products of Conception, External Approach (ICD-10-PCS; principal; 2018-11-16)
PROC: 10907ZC Drainage of Amniotic Fluid, Therapeutic from Products of Conception, Via Natural or Artificial Opening (ICD-10-PCS; 2018-11-16)
DX: O99.334 Smoking (tobacco) complicating childbirth (principal); O69.2XX0 Labor and delivery complicated by other cord entanglement, with compression, not applicable or unspecified; Z37.0 Single live birth; Z3A.40 40 weeks gestation of pregnancy; Z86.32 Personal history of gestational diabetes; Z86.59 Personal history of other mental and behavioral disorders
CPT/HCPCS: 85025; 99213; A9270; J7120

== ENCOUNTER 2022-01-11 08:43 | Outpatient (CLI) | payer MEDICAID ==
[2022-01-11 13:10] LABS: BASOPHILS # (AUTO) 0.1 10^3/uL (0.0-0.1); BASOPHILS % (AUTO) 0.4 %; EOSINOPHILS # (AUTO) 0.7 10^3/uL (0.0-0.7); EOSINOPHILS % (AUTO) 5.6 %; HCT - HEMATOCRIT 46.2 % (37.0-47.0); HGB - HEMOGLOBIN 14.6 g/dL (12.0-16.0); LYMPHOCYTES # (AUTO) 3.2 10^3/uL (1.5-3.5); LYMPHOCYTES % (AUTO) 26.4 %; MEAN CORPUSCULAR HEMOGLOBIN 26.6 pg (27.0-31.0); MEAN CORPUSCULAR HGB CONC 31.6 g/dL (32.0-36.0); MEAN CORPUSCULAR VOLUME 84.2 fL (81.0-99.0); MEAN PLATELET VOLUME 10.4 fL (7.9-10.8); MONOCYTES # (AUTO) 0.7 10^3/uL (0.0-1.0); MONOCYTES % (AUTO) 5.6 %; NEUTROPHILS # (AUTO) 7.5 10^3/uL (1.5-6.6); NEUTROPHILS % (AUTO) 61.7 %; PLT - PLATELET COUNT 282 10^3/uL (130-450); RED BLOOD COUNT 5.49 10^6/uL (4.20-5.40); RED CELL DISTRIBUTION WIDTH 13.3 % (12.0-15.0); WHITE BLOOD COUNT 12.2 x10^3/uL (4.8-10.8)
[2022-01-11 13:54] LABS: ALBUMIN 4.3 g/dL (3.2-5.5); ALBUMIN/GLOBULIN RATIO 1.2 (1.0-2.2); ALKALINE PHOSPHATASE 103 IU/L (42-121); ALT ALANINE AMINOTRANSFERASE 24 IU/L (10-60); AST ASPARTATE AMINOTRANSFERASE 23 IU/L (10-42); BILIRUBIN,TOTAL 0.7 mg/dL (0.2-1.0); BUN - BLOOD UREA NITROGEN 11 mg/dL (6-20); CALCIUM 9.5 mg/dL (8.5-10.3); CARBON DIOXIDE - CO2 25 mmol/L (21-32); CHLORIDE 102 mmol/L (101-111); CHOL/HDL RATIO 6.4 (<4.4); CHOLESTEROL 205 mg/dL; CREATININE 0.9 mg/dL (0.4-1.0); GFR - MDRD 75 (>89); GLUCOSE 141 mg/dL (70-100); HDL CHOLESTEROL 32 mg/dL; LDL CHOLESTEROL,CALCULATED 152 mg/dL; LDL/HDL RATIO 4.8 (<4.4); POTASSIUM 4.6 mmol/L (3.5-5.0); SODIUM 138 mmol/L (135-145); TRIGLYCERIDES 105 mg/dL; VLDL CHOLESTEROL 21 mg/dL
[2022-01-11 13:55] LABS: THYROID STIMULATING HORMONE 1.68 uIU/mL (0.34-5.60)
== END 2022-01-11 08:44 | disposition home or self-care (01) ==
LOC: LAB.N 08:43
PROVIDERS: ATTEND Nurse Practitioner
DX: Z00.00 Encounter for general adult medical examination without abnormal findings (principal); Z13.220 Encounter for screening for lipoid disorders; F41.9 Anxiety disorder, unspecified; F32.A Depression, unspecified
CPT/HCPCS: 36415; 80053; 80061; 83721; 84443; 85025